=== PATIENT | male | born 1985 | race Caucasian/White ===

== ENCOUNTER 2024-02-17 21:41 | Emergency (ER) | payer MEDICAID ==
[~2024-02-17] VITALS: Ht 180.3 cm; Wt 72.7 kg
[2024-02-17 22:11] VITALS: TEMP 98.1
[2024-02-18 02:12] VITALS: BP 120/62; PULSE 70; RESP 16; O2SAT 97
== END 2024-02-18 02:15 | disposition home or self-care (01) ==
LOC: ER 21:43
DX: R10.9 Unspecified abdominal pain (principal)
CPT/HCPCS: 99281